=== PATIENT | female | born 1970 | race Caucasian/White ===

== ENCOUNTER → 2016-10-31 | Outpatient (CLI) | payer OTHER ==
[~2016-10-31] MED LIST: ALPRAZOLAM0.5 M3 PO; ATIVAN0.5 MG PO; AUGMENTIN 875 M1 TAB PO; BENADRYL50 MG PO; BIAXIN500 MG PO; CLARITIN10 MG PO; DAYPRO600 M1 PO; FLEXERIL10 MG PO; FLUVOXAMINE50 MG PO; HYDROXYZINE PAM50 MG PO; IMIPRAMINE HCL50 MG PO; LEVAQUIN750 M1 PO; MEDROL DOSEPAK4 MG PO; PEPCID20 MG PO; PREVACID SOLUTA30 MG PO; PRILOSEC20 M1 PO; PRILOSEC40 M1 PO; ROBAXIN750 MG PO; TOFRANIL10 MG PO; TRAMADOL HCL50 MG PO; VICODIN 500 MG-1 TAB PO; VISTARIL50 MG PO; VIVELLE0.025 MG/2 TD; XANAX0.5 MG PO; ZANTAC150 MG PO; ZITHROMAX Z PA250 MG PO
== END | disposition home or self-care (01) ==
LOC: MAMMO 00:42
DX: Z12.31 Encounter for screening mammogram for malignant neoplasm of breast (principal)

== ENCOUNTER 2018-06-10 21:10 | Emergency (ER) | payer OTHER ==
[~2018-06-10] VITALS: Ht 167.6 cm; Wt 86.2 kg
[2018-06-10 21:11] VITALS: BP 140/86
[2018-06-10] MEDS ORDERED: PREDNISONE50 MG PO (21:24)
[2018-06-10] MEDS ORDERED: AVPAK AZITHROM250 M1 PO (21:24)
== END 2018-06-10 22:05 | disposition home or self-care (01) ==
LOC: ED 21:10
DX: R05 Cough (principal); R09.81 Nasal congestion; R09.89 Other specified symptoms and signs involving the circulatory and respiratory systems; J02.9 Acute pharyngitis, unspecified; R06.02 Shortness of breath; R51 Headache; K21.9 Gastro-esophageal reflux disease without esophagitis; Z91.041 Radiographic dye allergy status

== ENCOUNTER → 2019-03-14 | Outpatient (CLI) | payer OTHER ==
[~2019-03-14] MED LIST changes: +AVPAK AZITHROM250 M1 PO; +PREDNISONE50 MG PO
== END | disposition home or self-care (01) ==
LOC: MAMMO 07:52
DX: Z12.31 Encounter for screening mammogram for malignant neoplasm of breast (principal)

== ENCOUNTER → 2019-03-20 | Outpatient (CLI) | payer OTHER ==
--- NOTE | ~2019-03-20 | PF ---
[place], [place] PULMONARY FUNCTION TEST NAME: ROMANA CRUZ [facility] #: [id number] UNIT #: [id number] ROOM: DOCTOR: KRISTEN ABRAHAM MD,JC BIRTHDATE: [birth year] DOS: 03/20/2019 ORDERED BY: Dr. Clinton Davalos. HISTORY: The patient is a 49-year-old female, height of 66 inches, weight 197 pounds, BMI of 31.8. Diagnosis of COPD was reported. The patient noted with active tobacco use 1 pack of cigarettes per day. SPIROMETRY: FVC was 3.42 liters, 91% predicted value. The FEV1 was 2.72 liters at 91% predicted value. Ratio of FEV1/FVC was 80%. Flow volume was suggestive of mild obstructive airway pattern. Post-bronchodilator, no improvement recorded. LUNG VOLUME: Thoracic gas volume recorded as 105%, residual volume 140%, total lung capacity 111%. RV/TLC ratio 125%, suggestive of mild air trapping. Lung diffusion mildly decreased 64% without correction of carbon monoxide hemoglobin value. The patient's airway resistance and passive conductance were noted normal. FINAL IMPRESSION: Mild air trapping and mild reduction of the lung diffusion was noted with current findings certainly were not suggestive of diagnosis of COPD. Clinical correlation would be advised. JC PETERSON MD CM:PFREPORT:PULMONARY FUNCTION TEST [id number] JC ABRAHAM MD
== END | disposition home or self-care (01) ==
LOC: CP 06:57
DX: J44.9 Chronic obstructive pulmonary disease, unspecified (principal)

== ENCOUNTER 2019-08-27 10:37 | Emergency (ER) | payer OTHER ==
[~2019-08-27] VITALS: Ht 167.6 cm; Wt 90.7 kg
[2019-08-27 10:40] VITALS: BP 151/82
[2019-08-27 11:53] LABS: BASO # 0.1 10*3/uL (0.0-0.1); BASO % 0.4 % (0.0-1.0); EOS # 0.3 10*3/uL (0.0-0.4); EOS % 2.8 % (1.0-4.0); HEMATOCRIT 43.6 % (37.0-47.0); HEMOGLOBIN 14.2 g/dl (12.0-16.0); LYMPH # 2.2 10*3/uL (1.3-4.4); LYMPH % 18.1 % (27.0-41.0); MEAN CELL VOLUME 89.7 fl (81.0-99.0); MEAN CORPUSCULAR HGB 29.2 pg (27.0-31.0); MEAN CORPUSCULAR HGB CONC 32.6 g/dl (33.0-37.0); MONO # 0.5 10*3/uL (0.1-1.0); MONO % 3.9 % (3.0-9.0); NEUT # 8.7 10*3/uL (2.3-7.9); NEUT % 73.3 % (47.0-73.0); PLATELET COUNT AUTOMATED 325 10*3/uL (130-400); RED BLOOD COUNT 4.86 10*6/uL (4.10-5.10); RED CELL DISTRI WIDTH 13.7 % (0-14.5); WHITE BLOOD COUNT 11.9 10*3/uL (4.8-10.8)
[2019-08-27 12:08] LABS: ALKALINE PHOSPHATASE 149 U/L (45-117); BUN 8 mg/dl (7-24); CHLORIDE 107 mmol/L (98-107); CREATININE 1.12 mg/dL (0.55-1.02); POTASSIUM 3.9 mmol/L (3.5-5.1); SGOT/AST 10 IU/L (3-35); SGPT/ALT 29 U/L (12-78); SODIUM 140 mmol/L (136-145); TOTAL PROTEIN 6.8 gm/dL (6.4-8.2)
[2019-08-27] MEDS ORDERED: LEVAQUIN750 M1 PO (13:29)
[2019-08-27] MEDS ORDERED: PREDNISONE50 MG PO (13:29)
== END 2019-08-27 13:35 | disposition home or self-care (01) ==
LOC: ED 10:37
PROVIDERS: Nurse Practitioner Family
DX: J18.1 Lobar pneumonia, unspecified organism (principal); F17.200 Nicotine dependence, unspecified, uncomplicated; Z91.041 Radiographic dye allergy status; Z79.899 Other long term (current) drug therapy; Z79.2 Long term (current) use of antibiotics; Z90.710 Acquired absence of both cervix and uterus; Z90.49 Acquired absence of other specified parts of digestive tract

== ENCOUNTER 2019-09-02 08:09 | Emergency (ER) | payer OTHER ==
[~2019-09-02] VITALS: Ht 167.6 cm; Wt 90.7 kg
[2019-09-02] MEDS ORDERED: MEDROL DOSEPAK4 MG PO (08:44)
[2019-09-02] MEDS ORDERED: ZYRTEC10 MG PO (08:44)
[2019-09-02] MEDS ORDERED: PEPCID20 MG PO (08:45)
[2019-09-02] MEDS ORDERED: PRILOSEC20 M1 PO (08:45)
[2019-09-02 09:25] VITALS: BP 110/59
== END 2019-09-02 09:34 | disposition home or self-care (01) ==
LOC: ED 08:09
DX: T78.3XXA Angioneurotic edema, initial encounter (principal); K21.9 Gastro-esophageal reflux disease without esophagitis; Z91.041 Radiographic dye allergy status; Z79.2 Long term (current) use of antibiotics; Z79.899 Other long term (current) drug therapy

== ENCOUNTER 2020-01-14 10:06 | Emergency (ER) | payer OTHER ==
[~2020-01-14] VITALS: Ht 167.6 cm; Wt 94.3 kg
[~2020-01-14 10:06] MED LIST changes: +ZYRTEC10 MG PO
[2020-01-14 10:23] VITALS: BP 116/62
[2020-01-14 10:54] LABS: BASO # 0.1 10*3/uL (0.0-0.1); BASO % 0.6 % (0.0-1.0); EOS # 0.3 10*3/uL (0.0-0.4); HEMATOCRIT 47.8 % (37.0-47.0); HEMOGLOBIN 15.3 g/dl (12.0-16.0); LYMPH % 21.9 % (27.0-41.0); MEAN CELL VOLUME 88.5 fl (81.0-99.0); MEAN CORPUSCULAR HGB 28.3 pg (27.0-31.0); MEAN PLATELET VOLUME 10.2 fl (9.6-12.3); MONO # 0.4 10*3/uL (0.1-1.0); MONO % 4.5 % (3.0-9.0); NEUT # 6.3 10*3/uL (2.3-7.9); NEUT % 69.8 % (47.0-73.0); PLATELET COUNT AUTOMATED 269 10*3/uL (130-400); RED CELL DISTRI WIDTH 13.3 % (0-14.5); WHITE BLOOD COUNT 9.1 10*3/uL (4.8-10.8)
[2020-01-14 11:08] LABS: ALBUMIN 3.1 gm/dl (3.1-4.5); CREATININE 1.29 mg/dL (0.55-1.02); POTASSIUM 4.1 mmol/L (3.5-5.1); TOTAL PROTEIN 6.7 gm/dL (6.4-8.2)
[2020-01-14 11:23] LABS: BILIRUBIN NEGATIVE (NEGATIVE); BLOOD NEGATIVE (NEGATIVE); CLARITY SL CLOUDY (CLEAR); COLOR YELLOW (YELLOW); GLUCOSE NEGATIVE (NEGATIVE); KETONE NEGATIVE (NEGATIVE); SPECIFIC GRAVITY 1.015 (1.005-1.030)
[2020-01-14 11:24] LABS: BACTERIA 3+; EPITHELIAL CELLS 20-25; LEUKO ESTERASE NEGATIVE (NEGATIVE); NITRITE NEGATIVE (NEGATIVE); UROBILINOGEN 0.2 E.U./dl (0.2-1.0)
== END 2020-01-14 12:40 | disposition home or self-care (01) ==
LOC: ED 10:06
PROVIDERS: Emergency Medicine
DX: R42 Dizziness and giddiness (principal); R51 Headache; R82.998 Other abnormal findings in urine; K21.9 Gastro-esophageal reflux disease without esophagitis; F17.200 Nicotine dependence, unspecified, uncomplicated; Z91.040 Latex allergy status; Z79.2 Long term (current) use of antibiotics; Z79.899 Other long term (current) drug therapy; Z90.49 Acquired absence of other specified parts of digestive tract; Z90.710 Acquired absence of both cervix and uterus

== ENCOUNTER 2020-02-13 16:43 | Emergency (ER) | payer OTHER ==
[~2020-02-13] VITALS: Ht 167.6 cm; Wt 95.3 kg
[2020-02-13 16:57] VITALS: BP 118/43
[2020-02-13 18:08] LABS: BASO # 0.1 10*3/uL (0.0-0.1); BASO % 0.7 % (0.0-1.0); EOS # 0.3 10*3/uL (0.0-0.4); EOS % 2.6 % (1.0-4.0); HEMATOCRIT 47.5 % (37.0-47.0); LYMPH # 3.1 10*3/uL (1.3-4.4); LYMPH % 29.7 % (27.0-41.0); MEAN CELL VOLUME 87.6 fl (81.0-99.0); MEAN CORPUSCULAR HGB 28.8 pg (27.0-31.0); MEAN CORPUSCULAR HGB CONC 32.8 g/dl (33.0-37.0); MONO # 0.4 10*3/uL (0.1-1.0); MONO % 4.3 % (3.0-9.0); NEUT # 6.4 10*3/uL (2.3-7.9); NEUT % 62.4 % (47.0-73.0); PLATELET COUNT AUTOMATED 298 10*3/uL (130-400); RED BLOOD COUNT 5.42 10*6/uL (4.10-5.10); RED CELL DISTRI WIDTH 13.3 % (0-14.5); WHITE BLOOD COUNT 10.3 10*3/uL (4.8-10.8)
[2020-02-13 18:18] LABS: INTERNATIONAL NORM RATIO 0.9 (2.0-3.5)
[2020-02-13 18:24] LABS: ALBUMIN 3.1 gm/dl (3.1-4.5); ALKALINE PHOSPHATASE 146 U/L (45-117); BUN 8 mg/dl (7-24); CHLORIDE 110 mmol/L (98-107); CREATININE 1.26 mg/dL (0.55-1.02); POTASSIUM 3.6 mmol/L (3.5-5.1); SGOT/AST 20 IU/L (3-35); SGPT/ALT 37 U/L (12-78); SODIUM 141 mmol/L (136-145); TOTAL PROTEIN 6.7 gm/dL (6.4-8.2)
[2020-02-13 18:25] LABS: TROPONIN I < 0.015 ng/ml (<0.045)
[2020-02-13] MEDS ORDERED: MECLIZINE HCL25 M2 PO (19:54)
== END 2020-02-13 19:57 | disposition home or self-care (01) ==
LOC: ED 16:43
PROVIDERS: Physician Assistant
DX: R42 Dizziness and giddiness (principal); F41.9 Anxiety disorder, unspecified; Z91.041 Radiographic dye allergy status; Z79.899 Other long term (current) drug therapy

== ENCOUNTER 2020-04-28 21:32 | Emergency (ER) | payer OTHER ==
[~2020-04-28] VITALS: Ht 167.6 cm; Wt 95.3 kg
[~2020-04-28 21:32] MED LIST changes: +MECLIZINE HCL25 M2 PO
[2020-04-28 21:48] LABS: BASO # 0.1 10*3/uL (0.0-0.1); BASO % 0.5 % (0.0-1.0); EOS # 0.2 10*3/uL (0.0-0.4); EOS % 2.2 % (1.0-4.0); HEMATOCRIT 48.8 % (37.0-47.0); LYMPH # 3.1 10*3/uL (1.3-4.4); LYMPH % 28.3 % (27.0-41.0); MEAN CELL VOLUME 86.7 fl (81.0-99.0); MEAN CORPUSCULAR HGB 28.2 pg (27.0-31.0); MEAN CORPUSCULAR HGB CONC 32.6 g/dl (33.0-37.0); MEAN PLATELET VOLUME 10.2 fl (9.6-12.3); MONO # 0.6 10*3/uL (0.1-1.0); MONO % 5.3 % (3.0-9.0); NEUT % 63.3 % (47.0-73.0); PLATELET COUNT AUTOMATED 317 10*3/uL (130-400); RED BLOOD COUNT 5.63 10*6/uL (4.10-5.10); RED CELL DISTRI WIDTH 13.4 % (0-14.5)
[2020-04-28 22:04] LABS: ALBUMIN 3.4 gm/dl (3.1-4.5); ALKALINE PHOSPHATASE 143 U/L (45-117); BUN 12 mg/dl (7-24); CHLORIDE 106 mmol/L (98-107); INTERNATIONAL NORM RATIO 0.9 (2.0-3.5); POTASSIUM 3.5 mmol/L (3.5-5.1); SGOT/AST 12 IU/L (3-35); SGPT/ALT 39 U/L (12-78); SODIUM 139 mmol/L (136-145); TOTAL PROTEIN 7.4 gm/dL (6.4-8.2)
[2020-04-28 22:07] LABS: TROPONIN I < 0.015 ng/ml (<0.045)
[2020-04-29 00:15] VITALS: BP 106/74
== END 2020-04-29 02:10 | disposition left against medical advice (07) ==
LOC: ED 21:32
PROVIDERS: Emergency Medicine
DX: R07.9 Chest pain, unspecified (principal); K21.9 Gastro-esophageal reflux disease without esophagitis; F41.9 Anxiety disorder, unspecified; Z91.041 Radiographic dye allergy status; Z79.899 Other long term (current) drug therapy; Z79.2 Long term (current) use of antibiotics

== ENCOUNTER 2020-12-10 18:05 | Emergency (ER) | payer OTHER ==
[~2020-12-10] VITALS: Ht 170.1 cm; Wt 99.3 kg
[2020-12-10 18:19] VITALS: BP 120/69
[2020-12-10] MEDS ORDERED: REQUIP5 MG PO (18:24)
[2020-12-10] MEDS ORDERED: REXULTI2 MG PO (18:25)
[2020-12-10] MEDS ORDERED: LIPITOR80 MG PO (18:27)
[2020-12-10] MEDS ORDERED: MOVE FREE ULTR1 EAC2 PO (18:29)
[2020-12-10] MEDS ORDERED: ASPIRIN CHILDRE81 MG PO (18:30)
[2020-12-10] MEDS ORDERED: MEDROL DOSEPAK4 MG PO (20:32)
== END 2020-12-10 20:42 | disposition home or self-care (01) ==
LOC: ED 18:05
DX: M25.551 Pain in right hip (principal); F41.9 Anxiety disorder, unspecified; Z91.040 Latex allergy status; Z91.018 Allergy to other foods; Z79.899 Other long term (current) drug therapy; Z79.82 Long term (current) use of aspirin; Z90.49 Acquired absence of other specified parts of digestive tract

== ENCOUNTER → 2021-02-03 | Outpatient (CLI) | payer OTHER ==
[~2021-02-03] MED LIST changes: +ASPIRIN CHILDRE81 MG PO; +LIPITOR80 MG PO; +MOVE FREE ULTR1 EAC2 PO; +REQUIP5 MG PO; +REXULTI2 MG PO
== END | disposition home or self-care (01) ==
LOC: LAB 13:26
DX: M85.88 Other specified disorders of bone density and structure, other site (principal)

== ENCOUNTER → 2022-01-10 | Outpatient (CLI) | payer OTHER | END | disposition home or self-care (01) | LOC: MAMMO 12-27 13:30 | PROVIDERS: ATTEND Internal Medicine | DX: Z12.31 Encounter for screening mammogram for malignant neoplasm of breast (principal) ==

== ENCOUNTER → 2022-08-05 | Outpatient (CLI) | payer OTHER ==
[2022-08-05 14:16] LABS: BASO # 0.1 10*3/uL (0.0-0.1); BASO % 0.4 % (0.0-1.0); EOS # 0.2 10*3/uL (0.0-0.4); EOS % 1.3 % (1.0-4.0); HEMATOCRIT 44.8 % (37.0-47.0); LYMPH # 2.9 10*3/uL (1.3-4.4); MEAN CELL VOLUME 86.3 fl (81.0-99.0); MEAN CORPUSCULAR HGB 28.7 pg (27.0-31.0); MEAN CORPUSCULAR HGB CONC 33.3 g/dl (33.0-37.0); MEAN PLATELET VOLUME 10.1 fl (9.6-12.3); MONO # 0.4 10*3/uL (0.1-1.0); MONO % 2.8 % (3.0-9.0); NEUT # 9.8 10*3/uL (2.3-7.9); NEUT % 73.1 % (47.0-73.0); PLATELET COUNT AUTOMATED 291 10*3/uL (130-400); RED BLOOD COUNT 5.19 10*6/uL (4.10-5.10); RED CELL DISTRI WIDTH 14.7 % (0-14.5); WHITE BLOOD COUNT 13.4 10*3/uL (4.8-10.8)
[2022-08-06 08:07] LABS: HBSAG Negative (Negative); HEP B CORE AB, IGM Negative (Negative); HEPATITIS C ANTIBODY <0.1 (0.0-0.9)
[2022-08-06 09:06] LABS: RHEUMATOID FACTOR <10.0 IU/mL (<14.0)
[2022-08-06 13:06] LABS: ANTI-RNP ANTIBODIES 0.3 AI (0.0-0.9)
[2022-08-07 01:05] LABS: DVVTMIXRFX CHG (NP); LUPUS DRVVT 55.6 sec (0.0-47.0); PTT-LA 35.7 sec (0.0-51.9)
[2022-08-07 04:05] LABS: LUPUS REFLEX INTERPRETATION Comment: (.)
[2022-08-09 00:06] LABS: CCP ANTIBODIES IGG/IGA 3 units (0-19)
[2022-08-11 15:06] LABS: HLA-B27 ANTIGEN Negative (.)
== END | disposition home or self-care (01) ==
LOC: LAB 13:28
PROVIDERS: ATTEND Orthopaedic Surgery
DX: M25.562 Pain in left knee (principal)

== ENCOUNTER → 2022-08-24 | Outpatient (CLI) | payer OTHER | LOC: LAB 15:07 | PROVIDERS: ATTEND Internal Medicine Critical Care Medicine | DX: R53.83 Other fatigue (principal) ==

== ENCOUNTER 2022-10-22 19:26 | Emergency (ER) | payer OTHER ==
[~2022-10-22] VITALS: Ht 167.6 cm; Wt 93.9 kg
[2022-10-22 19:32] VITALS: BP 124/75
[2022-10-22] MEDS ORDERED: PREDNISONE20 M1 PO (20:31)
[2022-10-22] MEDS ORDERED: CEPHALEXIN500 M1 PO (20:31)
[2022-10-22] MEDS ORDERED: SEPTDS PO (20:31)
== END 2022-10-22 21:50 | disposition home or self-care (01) ==
LOC: ED 19:26
DX: L03.114 Cellulitis of left upper limb (principal); Z91.041 Radiographic dye allergy status; Z88.1 Allergy status to other antibiotic agents; Z91.018 Allergy to other foods; Z91.013 Allergy to seafood; Z79.899 Other long term (current) drug therapy; Z79.82 Long term (current) use of aspirin; Z90.49 Acquired absence of other specified parts of digestive tract; Z90.710 Acquired absence of both cervix and uterus

== ENCOUNTER → 2023-02-06 | Outpatient (CLI) | payer OTHER ==
[~2023-02-06] MED LIST changes: +CEPHALEXIN500 M1 PO; +PREDNISONE20 M1 PO; +SEPTDS PO
== END | disposition home or self-care (01) ==
LOC: MAMMO 00:25
PROVIDERS: ATTEND Internal Medicine
DX: Z12.31 Encounter for screening mammogram for malignant neoplasm of breast (principal); N64.9 Disorder of breast, unspecified

== ENCOUNTER 2023-09-23 10:12 | Emergency (ER) | payer SELFPAY ==
[~2023-09-23] VITALS: Ht 167.6 cm; Wt 97.1 kg
[2023-09-23 10:22] VITALS: BP 136/66
[2023-09-23] MEDS ORDERED: ZITHROMAX250 MG PO (13:25)
== END 2023-09-23 13:54 | disposition home or self-care (01) ==
LOC: ED 10:12
DX: J21.9 Acute bronchiolitis, unspecified (principal); F41.9 Anxiety disorder, unspecified; Z91.041 Radiographic dye allergy status; Z91.013 Allergy to seafood; Z91.018 Allergy to other foods; Z88.8 Allergy status to other drugs, medicaments and biological substances; Z90.49 Acquired absence of other specified parts of digestive tract; Z90.710 Acquired absence of both cervix and uterus; Z98.890 Other specified postprocedural states

== ENCOUNTER 2024-04-08 14:14 | Emergency (ER) | payer OTHER ==
[~2024-04-08 14:14] MED LIST changes: +ZITHROMAX250 MG PO
== END 2024-04-08 15:45 | disposition left against medical advice (07) ==
LOC: ED 14:14
DX: R05.9 Cough, unspecified (principal); Z91.041 Radiographic dye allergy status; Z91.013 Allergy to seafood; Z88.1 Allergy status to other antibiotic agents; Z88.8 Allergy status to other drugs, medicaments and biological substances; Z53.21 Procedure and treatment not carried out due to patient leaving prior to being seen by health care provider

== ENCOUNTER 2024-04-08 20:05 | Emergency (ER) | payer OTHER ==
[~2024-04-08] VITALS: Ht 167.6 cm; Wt 88.5 kg
[2024-04-08 20:12] VITALS: BP 122/64
== END 2024-04-08 21:26 | disposition left against medical advice (07) ==
LOC: ED 20:05
DX: R05.9 Cough, unspecified (principal); R50.9 Fever, unspecified; R09.81 Nasal congestion; Z91.041 Radiographic dye allergy status; Z91.013 Allergy to seafood; Z91.018 Allergy to other foods; Z88.1 Allergy status to other antibiotic agents; Z53.21 Procedure and treatment not carried out due to patient leaving prior to being seen by health care provider

== ENCOUNTER 2024-06-12 11:10 | Emergency (ER) | payer OTHER ==
[~2024-06-12] VITALS: Ht 167.6 cm; Wt 86.2 kg
[2024-06-12 11:28] VITALS: BP 126/75
[2024-06-12] MEDS ORDERED: CLINDAMYCIN HC300 MG PO (11:38)
== END 2024-06-12 11:40 | disposition home or self-care (01) ==
LOC: ED 11:10
DX: K04.7 Periapical abscess without sinus (principal); F17.210 Nicotine dependence, cigarettes, uncomplicated; Z91.041 Radiographic dye allergy status; Z91.013 Allergy to seafood; Z91.018 Allergy to other foods; Z88.1 Allergy status to other antibiotic agents; Z79.899 Other long term (current) drug therapy; Z79.2 Long term (current) use of antibiotics; Z79.82 Long term (current) use of aspirin; Z90.49 Acquired absence of other specified parts of digestive tract; Z90.710 Acquired absence of both cervix and uterus

== ENCOUNTER 2024-06-19 13:01 | Emergency (ER) | payer OTHER ==
[~2024-06-19] VITALS: Ht 167.6 cm; Wt 86.2 kg
[~2024-06-19 13:01] MED LIST changes: +CLINDAMYCIN HC300 MG PO
[2024-06-19 13:33] VITALS: BP 130/75
[2024-06-19] MEDS ORDERED: AMOXICILLIN500 M3 PO (16:10)
== END 2024-06-19 16:26 | disposition home or self-care (01) ==
LOC: ED 13:01
DX: J32.0 Chronic maxillary sinusitis (principal); H57.12 Ocular pain, left eye; F32.A Depression, unspecified; F41.9 Anxiety disorder, unspecified; E78.5 Hyperlipidemia, unspecified; K21.9 Gastro-esophageal reflux disease without esophagitis; Z91.041 Radiographic dye allergy status; Z91.013 Allergy to seafood; Z91.018 Allergy to other foods; Z88.1 Allergy status to other antibiotic agents; Z90.49 Acquired absence of other specified parts of digestive tract; Z90.710 Acquired absence of both cervix and uterus; Z98.890 Other specified postprocedural states

== ENCOUNTER 2024-07-17 09:23 | Emergency (ER) | payer OTHER ==
[~2024-07-17 09:23] MED LIST changes: +AMOXICILLIN500 M3 PO
[2024-07-17 09:36] VITALS: BP 130/92
[2024-07-17] MEDS ORDERED: 'XANAX0.5 MG PO (09:56)
[2024-07-17] MEDS ORDERED: VIBRAMYCIN100 MG PO (09:57)
[2024-07-17 10:02] LABS: BASO # 0.1 10*3/uL (0.0-0.1); BASO % 0.5 % (0.0-1.0); EOS # 0.2 10*3/uL (0.0-0.4); EOS % 1.6 % (1.0-4.0); HEMATOCRIT 42.1 % (37.0-47.0); LYMPH # 2.6 10*3/uL (1.3-4.4); LYMPH % 21.4 % (27.0-41.0); MEAN CELL VOLUME 85.4 fl (81.0-99.0); MEAN PLATELET VOLUME 10.2 fl (9.6-12.3); MONO # 0.4 10*3/uL (0.1-1.0); MONO % 3.3 % (3.0-9.0); NEUT # 8.9 10*3/uL (2.3-7.9); NEUT % 72.6 % (47.0-73.0); PLATELET COUNT AUTOMATED 224 10*3/uL (130-400); RED BLOOD COUNT 4.93 10*6/uL (4.10-5.10); RED CELL DISTRI WIDTH 14.3 % (0-14.5); WHITE BLOOD COUNT 12.2 10*3/uL (4.8-10.8)
[2024-07-17 10:27] LABS: ALKALINE PHOSPHATASE 219 U/L (46-116); BUN 11 mg/dl (9-23); CHLORIDE 102 mmol/L (98-107); LIPASE 44 U/L (12-53); POTASSIUM 3.8 mmol/L (3.4-5.1); SGPT/ALT 24 U/L (5-49); TOTAL PROTEIN 6.6 gm/dL (6.0-8.0)
[2024-07-17 10:30] LABS: BILIRUBIN Negative (Negative); BLOOD Negative (Negative); CLARITY Clear (Clear); COLOR Yellow (Yellow); GLUCOSE 2+ (Negative); KETONE Negative (Negative); LEUKO ESTERASE Trace (Negative); NITRITE Negative (Negative); PH 5.5 (4.5-8.0); UROBILINOGEN 0.2 E.U./dl (0.0-1.0)
[2024-07-17 10:51] LABS: BACTERIA 1+
[2024-07-17] MEDS ORDERED: FLUONAZOLE150 M1 PO (10:58)
== END 2024-07-17 11:03 | disposition home or self-care (01) ==
LOC: ED 09:23
PROVIDERS: Physician Assistant Medical
DX: B37.31 Acute candidiasis of vulva and vagina (principal); R19.7 Diarrhea, unspecified; R11.0 Nausea; F41.9 Anxiety disorder, unspecified; Z91.041 Radiographic dye allergy status; Z91.013 Allergy to seafood; Z88.1 Allergy status to other antibiotic agents; Z91.018 Allergy to other foods; Z90.49 Acquired absence of other specified parts of digestive tract; Z90.710 Acquired absence of both cervix and uterus; Z98.890 Other specified postprocedural states; Z79.899 Other long term (current) drug therapy

== ENCOUNTER → 2024-08-12 | Outpatient (CLI) | payer OTHER ==
[~2024-08-12] MED LIST changes: +'XANAX0.5 MG PO; +FLUONAZOLE150 M1 PO; +VIBRAMYCIN100 MG PO
[2024-08-12 09:47] LABS: ALKALINE PHOSPHATASE 196 U/L (46-116); BUN 7 mg/dl (9-23); CHLORIDE 103 mmol/L (98-107); CHOLESTEROL 134 mg/dL (<200); LDL CHOLESTEROL 37 mg/dL (9-159); POTASSIUM 4.1 mmol/L (3.4-5.1); SGPT/ALT 39 U/L (5-49); TOTAL PROTEIN 6.5 gm/dL (6.0-8.0); TRIGLYCERIDES 343 mg/dl (<150)
== END | disposition home or self-care (01) ==
LOC: LAB 08:30
PROVIDERS: ATTEND Student in an Organized Health Care Education/Training Program
DX: E11.9 Type 2 diabetes mellitus without complications (principal); E78.2 Mixed hyperlipidemia

== ENCOUNTER 2024-08-29 18:11 | Emergency (ER) | payer OTHER | END 2024-08-29 18:20 | disposition left against medical advice (07) | LOC: ED 18:11 | DX: R07.89 Other chest pain (principal); Z91.041 Radiographic dye allergy status; Z88.1 Allergy status to other antibiotic agents; Z91.013 Allergy to seafood; Z91.018 Allergy to other foods; Z53.21 Procedure and treatment not carried out due to patient leaving prior to being seen by health care provider ==

== ENCOUNTER → 2024-11-22 | Outpatient (CLI) | payer OTHER | END | disposition home or self-care (01) | LOC: LAB 09:11 | PROVIDERS: ATTEND Internal Medicine Endocrinology, Diabetes & Metabolism | DX: E11.65 Type 2 diabetes mellitus with hyperglycemia (principal) ==

== ENCOUNTER → 2025-01-08 | Outpatient (CLI) | payer OTHER ==
[~2025-01-08] MED LIST changes: +METHOCARBAMOL500 M1 PO
== END | disposition home or self-care (01) ==
LOC: RESCLI 14:00
PROVIDERS: ATTEND Family Medicine
DX: E78.1 Pure hyperglyceridemia (principal); E78.2 Mixed hyperlipidemia; R11.0 Nausea; F32.9 Major depressive disorder, single episode, unspecified; E11.9 Type 2 diabetes mellitus without complications; E11.65 Type 2 diabetes mellitus with hyperglycemia; K21.9 Gastro-esophageal reflux disease without esophagitis; F41.9 Anxiety disorder, unspecified; Z79.899 Other long term (current) drug therapy; Z98.890 Other specified postprocedural states; Z88.8 Allergy status to other drugs, medicaments and biological substances

== ENCOUNTER 2025-01-09 10:24 | Emergency (ER) | payer OTHER ==
[~2025-01-09] VITALS: Ht 167.6 cm; Wt 86.6 kg
[~2025-01-09 10:24] MED LIST changes: -METHOCARBAMOL500 M1 PO
[2025-01-09 10:41] VITALS: BP 117/59
[2025-01-09] MEDS ORDERED: MORPHINE Sulfate 2 MG/ML SYR IV ONE (11:00)
[2025-01-09] MEDS ORDERED: SODIUM CHLORIDE 0.9% 1,000 ML IV ONE (11:00)
[2025-01-09] MEDS ORDERED: Ondansetron Hydrochloride 4 MG/2 ML VIAL IV ONE (11:00)
[2025-01-09 11:19] LABS: BASO % 0.4 % (0.0-1.0); EOS # 0.2 10*3/uL (0.0-0.4); HEMATOCRIT 45.7 % (37.0-47.0); MEAN CELL VOLUME 86.6 fl (81.0-99.0); MEAN CORPUSCULAR HGB 28.4 pg (27.0-31.0); MEAN CORPUSCULAR HGB CONC 32.8 g/dl (33.0-37.0); MEAN PLATELET VOLUME 9.4 fl (9.6-12.3); MONO # 0.3 10*3/uL (0.1-1.0); MONO % 3.2 % (3.0-9.0); NEUT # 7.1 10*3/uL (2.3-7.9); NEUT % 66.6 % (47.0-73.0); PLATELET COUNT AUTOMATED 274 10*3/uL (130-400); RED BLOOD COUNT 5.28 10*6/uL (4.10-5.10); RED CELL DISTRI WIDTH 13.4 % (0-14.5); WHITE BLOOD COUNT 10.6 10*3/uL (4.8-10.8)
[2025-01-09 11:37] LABS: BILIRUBIN Negative (Negative); BLOOD Negative (Negative); CLARITY Clear (Clear); COLOR Yellow (Yellow); GLUCOSE Negative (Negative); KETONE Negative (Negative); LEUKO ESTERASE Trace (Negative); NITRITE Negative (Negative); SPECIFIC GRAVITY 1.015 (1.001-1.030); UROBILINOGEN 0.2 E.U./dl (0.0-1.0)
[2025-01-09 11:41] LABS: CHLORIDE 107 mmol/L (98-107)
[2025-01-09 11:42] LABS: BUN < 5 mg/dl (9-23)
[2025-01-09 11:58] LABS: BACTERIA TRACE; EPITHELIAL CELLS 41-50; WBC 21-30 wbc/hpf (0-5)
[2025-01-09] MEDS ORDERED: TRAMADOL HCL50 MG PO (13:02)
[2025-01-09] MEDS ORDERED: METHOCARBAMOL500 M1 PO (13:02)
== END 2025-01-09 13:05 | disposition home or self-care (01) ==
LOC: ED 10:24
PROVIDERS: Emergency Medicine
DX: M54.50 Low back pain, unspecified (principal); R10.9 Unspecified abdominal pain; K21.9 Gastro-esophageal reflux disease without esophagitis; Z91.041 Radiographic dye allergy status; Z91.013 Allergy to seafood; Z88.1 Allergy status to other antibiotic agents; Z91.018 Allergy to other foods; Z79.899 Other long term (current) drug therapy; Z79.82 Long term (current) use of aspirin; Z90.49 Acquired absence of other specified parts of digestive tract; Z90.710 Acquired absence of both cervix and uterus

== ENCOUNTER → 2025-01-29 | Outpatient (CLI) | payer OTHER ==
[~2025-01-29] MED LIST changes: +METHOCARBAMOL500 M1 PO
== END | disposition home or self-care (01) ==
LOC: MAMMO 02:48
PROVIDERS: ATTEND Nurse Practitioner Family
DX: Z12.31 Encounter for screening mammogram for malignant neoplasm of breast (principal); R92.323 Mammographic fibroglandular density, bilateral breasts

== ENCOUNTER → 2025-02-20 | Outpatient (CLI) | payer OTHER | END | disposition home or self-care (01) | LOC: RAD 13:25 | PROVIDERS: ATTEND Nurse Practitioner Family | DX: R05.3 Chronic cough (principal); M47.814 Spondylosis without myelopathy or radiculopathy, thoracic region ==

== ENCOUNTER → 2025-03-12 | Outpatient (CLI) | payer OTHER | END | disposition home or self-care (01) | LOC: CT 00:57 | PROVIDERS: ATTEND Nurse Practitioner Family | DX: Z12.2 Encounter for screening for malignant neoplasm of respiratory organs (principal); I25.10 Atherosclerotic heart disease of native coronary artery without angina pectoris; K76.0 Fatty (change of) liver, not elsewhere classified; N28.89 Other specified disorders of kidney and ureter; M47.814 Spondylosis without myelopathy or radiculopathy, thoracic region; J43.9 Emphysema, unspecified; J98.4 Other disorders of lung; F17.210 Nicotine dependence, cigarettes, uncomplicated; Z90.49 Acquired absence of other specified parts of digestive tract ==

== ENCOUNTER → 2025-05-24 | Outpatient (CLI) | payer BC ==
[2025-05-24 10:01] LABS: BUN 5 mg/dl (9-23); LDL CHOLESTEROL 62 mg/dL (9-159); SGPT/ALT 42 U/L (5-49)
== END ==
LOC: LAB 09:23
PROVIDERS: Student in an Organized Health Care Education/Training Program; ATTEND Internal Medicine
DX: E11.9 Type 2 diabetes mellitus without complications (principal)

== ENCOUNTER → 2025-08-04 | Outpatient (CLI) | payer BC | END | disposition home or self-care (01) | LOC: RAD 12:33 | PROVIDERS: ATTEND Nurse Practitioner Family | DX: J06.9 Acute upper respiratory infection, unspecified (principal) ==